=== PATIENT | male | born 1950 | race Caucasian/White ===

== ENCOUNTER 2021-01-02 09:00 | Inpatient (IN) ==
[2021-01-02] MEDS ORDERED: ONDANSETRON 4 MG/2 ML VIAL IV STA (09:27)
[2021-01-02] MEDS ORDERED: SODIUM CHLORIDE 0.9% 1,000 ML IV STA (09:27)
[2021-01-02 09:56] LABS: Basophils % 0.2 % (0.0-0.8); Eosinophils # 0.1 10*3/uL (0.0-0.87); Eosinophils % 1.1 % (0.00-10.9); Hematocrit 39.4 VOL% (42.0-52.0); Hemoglobin 13.6 GM/DL (14.0-18.0); Immature Granulocytes % 0.2 %; Immature Granulocytes Absolute 0.02 #; Lymphocytes % 10.7 % (21.2-54.2); Mean Corpuscular HGB Conc 34.5 GM/DL (32-36); Mean Corpuscular Volume 82.4 FL (87-102); Mean Platelet Volume 9.9 FL (9.6-12.0); Monocytes % 8.5 % (1.7-12.7); Neutrophils % 79.3 % (38.7-73.9); Platelet Count 157 T/CUMM (130-400); Red Blood Count 4.78 MC/CUMM (3.8-5.5); White Blood Count 9.2 T/CUMM (4-12)
[2021-01-02 10:21] LABS: Albumin 3.2 G/DL (3.4-5.0); Bilirubin,Total 1.8 MG/DL (0.2-1.0); Calcium 8.6 MG/DL (8.5-10.1); Osmolality,Calculated 255.1 MOS/KG (273-304); Potassium 3.5 MMOL/L (3.5-5.1); Total Protein 6.7 G/DL (6.4-8.2)
[2021-01-02 10:42] LABS: Bilirubin,Urine Negative (Negative); Blood, Urine Negative (Negative); Glucose,Urine (UA) Negative (Negative); Ketones,Urine Negative (Negative); Mucus,Urine Occasional /LPF (Occasional); Nitrite,Urine Negative (Negative); Protein,Urine Negative; RBC,Urine 1 /HPF (0-4); Squamous Epithelial Cell,Urine Occasional /HPF (0-10); Urine Appearance CLEAR (Clear); Urine Color Yellow (Yellow); Urine Specific Gravity 1.011 (1.001-1.035)
[2021-01-02] MEDS ORDERED: GLUCAGON 1 MG VIAL IM PRN (13:02)
[2021-01-02] MEDS ORDERED: DEXTROSE 50% 25 GM/50 ML VIAL IV PRN (13:02)
[2021-01-02] MEDS ORDERED: ALBUTEROL 2.5 MG/3 ML NEB RESP TX PRN (13:06)
[2021-01-02] MEDS ORDERED: DICLOFENAC 1% GEL 100 GM TUBE TOP PRN (13:06)
[2021-01-02 15:12] LABS: INR 1.2; PT Patient Result 12.9 SECS (9.8-11.9)
[2021-01-02] MEDS ORDERED: FUROSEMIDE 20 MG/2 ML VIAL IV ONE (15:32)
[2021-01-02] MEDS: ACETAMINOPHEN 325 MG TABLET PO PRN ×2 (16:18→20:25)
[2021-01-02] MEDS: ONDANSETRON 4 MG/2 ML VIAL IV PRN (18:29)
[2021-01-02] MEDS ORDERED: MORPHINE 4 MG/1 ML VIAL IV PRN (20:14)
[2021-01-02] MEDS: TERAZOSIN 1 MG CAPSULE PO SCH (20:24)
[2021-01-02] MEDS: FOLIC ACID 1 MG TABLET PO SCH (20:24)
[2021-01-02] MEDS: CHOLECALCIFEROL 1,000 UNIT TABLET PO SCH (20:24)
[2021-01-02] MEDS: diphenhydrAMINE CAP 25 MG CAPSULE PO SCH (20:24)
[2021-01-02] MEDS ORDERED: PROPRANOLOL 60 MG PO SCH (21:00)
[2021-01-03] MEDS: ACETAMINOPHEN 325 MG TABLET PO PRN (05:25)
[2021-01-03] MEDS: ONDANSETRON 4 MG/2 ML VIAL IV PRN (05:58)
[2021-01-03 06:20] LABS: Basophils % 0.4 % (0.0-0.8); Eosinophils # 0.4 10*3/uL (0.0-0.87); Eosinophils % 5.4 % (0.00-10.9); Hematocrit 38.5 VOL% (42.0-52.0); Immature Granulocytes % 0.8 %; Immature Granulocytes Absolute 0.06 #; Lymphocytes # 0.9 10*3/uL (1.4-4.0); Lymphocytes % 12.8 % (21.2-54.2); Mean Corpuscular HGB Conc 33.8 GM/DL (32-36); Mean Corpuscular Volume 82.8 FL (87-102); Monocytes % 9.6 % (1.7-12.7); Platelet Count 165 T/CUMM (130-400); Red Blood Count 4.65 MC/CUMM (3.8-5.5); White Blood Count 7.4 T/CUMM (4-12)
[2021-01-03 06:38] LABS: Calcium 8.5 MG/DL (8.5-10.1); Osmolality,Calculated 266.2 MOS/KG (273-304); Potassium 3.4 MMOL/L (3.5-5.1)
[2021-01-03 06:39] LABS: INR 1.1; PT Patient Result 11.7 SECS (9.8-11.9)
[2021-01-03 06:58] LABS: Cancer Antigen 19-9 53.75 U/ML (0-35); Carcinoembryonic Antigen 1.9 NG/ML (0.0-5.0)
[2021-01-03] MEDS ORDERED: DIAZEPAM 5 MG TABLET PO ONE (09:34)
[2021-01-03] MEDS ORDERED: DIPHENOXYLATE/ATROPINE 2.5-0.025 MG TABLET PO PRN (10:47)
[2021-01-03] MEDS: TERAZOSIN 1 MG CAPSULE PO SCH (20:23)
[2021-01-03] MEDS: FOLIC ACID 1 MG TABLET PO SCH (20:24)
[2021-01-03] MEDS: CHOLECALCIFEROL 1,000 UNIT TABLET PO SCH (20:24)
[2021-01-03] MEDS: diphenhydrAMINE CAP 25 MG CAPSULE PO SCH (20:24)
[2021-01-04] MEDS ORDERED: POTASSIUM CHLORIDE RIDER 10 MEQ in PREMIX 1 EACH IV PRN (07:47)
[2021-01-04] MEDS: POTASSIUM CHLORIDE 20 MEQ TABLET PO PRN ×3 (08:28→13:00)
[2021-01-04] MEDS: diphenhydrAMINE CAP 25 MG CAPSULE PO SCH (20:53)
[2021-01-04] MEDS: FOLIC ACID 1 MG TABLET PO SCH (20:55)
[2021-01-04] MEDS: CHOLECALCIFEROL 1,000 UNIT TABLET PO SCH (20:56)
[2021-01-04] MEDS: TERAZOSIN 1 MG CAPSULE PO SCH (20:57)
[2021-01-05 07:42] LABS: Basophils % 0.5 % (0.0-0.8); Eosinophils # 0.2 10*3/uL (0.0-0.87); Eosinophils % 2.9 % (0.00-10.9); Hematocrit 37.2 VOL% (42.0-52.0); Hemoglobin 12.8 GM/DL (14.0-18.0); Immature Granulocytes % 0.3 %; Immature Granulocytes Absolute 0.02 #; Lymphocytes # 0.9 10*3/uL (1.4-4.0); Lymphocytes % 13.6 % (21.2-54.2); Mean Corpuscular HGB Conc 34.4 GM/DL (32-36); Mean Corpuscular Volume 82.5 FL (87-102); Mean Platelet Volume 9.6 FL (9.6-12.0); Monocytes % 8.2 % (1.7-12.7); Neutrophils % 74.5 % (38.7-73.9); Platelet Count 163 T/CUMM (130-400); Red Blood Count 4.51 MC/CUMM (3.8-5.5); Red Cell Distribution Width 13.8 % (9.3-17.3); White Blood Count 6.5 T/CUMM (4-12)
[2021-01-05 08:05] LABS: Albumin 2.9 G/DL (3.4-5.0); Bilirubin,Total 1.2 MG/DL (0.2-1.0); Calcium 8.5 MG/DL (8.5-10.1); Osmolality,Calculated 265.4 MOS/KG (273-304); Potassium 3.6 MMOL/L (3.5-5.1); Total Protein 6.4 G/DL (6.4-8.2)
[2021-01-05] MEDS: TERAZOSIN 1 MG CAPSULE PO SCH (20:46)
[2021-01-05] MEDS: FOLIC ACID 1 MG TABLET PO SCH (20:46)
[2021-01-05] MEDS: diphenhydrAMINE CAP 25 MG CAPSULE PO SCH (20:46)
[2021-01-05] MEDS: CHOLECALCIFEROL 1,000 UNIT TABLET PO SCH (20:46)
[2021-01-06] MEDS: HYDROmorphone 2 MG/1 ML VIAL IV PRN ×2 (19:50→23:49)
[2021-01-06] MEDS: CHOLECALCIFEROL 1,000 UNIT TABLET PO SCH (20:00)
[2021-01-06] MEDS: FOLIC ACID 1 MG TABLET PO SCH (20:00)
[2021-01-06] MEDS: diphenhydrAMINE CAP 25 MG CAPSULE PO SCH (20:00)
[2021-01-06] MEDS: TERAZOSIN 1 MG CAPSULE PO SCH (20:01)
[2021-01-06] MEDS: ACETAMINOPHEN 325 MG TABLET PO PRN (22:18)
[2021-01-06] MEDS: ONDANSETRON 4 MG/2 ML VIAL IV PRN (23:35)
[2021-01-07 05:42] LABS: Basophils % 0.1 % (0.0-0.8); Eosinophils # 0.1 10*3/uL (0.0-0.87); Eosinophils % 1.9 % (0.00-10.9); Hematocrit 37.6 VOL% (42.0-52.0); Hemoglobin 13.1 GM/DL (14.0-18.0); Immature Granulocytes % 0.6 %; Immature Granulocytes Absolute 0.04 #; Lymphocytes # 0.6 10*3/uL (1.4-4.0); Lymphocytes % 8.2 % (21.2-54.2); Mean Corpuscular HGB Conc 34.8 GM/DL (32-36); Mean Corpuscular Volume 81.9 FL (87-102); Mean Platelet Volume 9.8 FL (9.6-12.0); Monocytes % 7.5 % (1.7-12.7); Neutrophils % 81.7 % (38.7-73.9); Platelet Count 158 T/CUMM (130-400); Red Blood Count 4.59 MC/CUMM (3.8-5.5); White Blood Count 6.7 T/CUMM (4-12)
[2021-01-07 05:47] LABS: Calcium 8.7 MG/DL (8.5-10.1); Osmolality,Calculated 268.2 MOS/KG (273-304); Potassium 3.9 MMOL/L (3.5-5.1)
[2021-01-07] MEDS: POTASSIUM CHLORIDE 20 MEQ TABLET PO PRN (08:50)
[2021-01-07] MEDS: HYDROmorphone 2 MG/1 ML VIAL IV PRN ×2 (12:17→20:05)
[2021-01-07] MEDS: ONDANSETRON 4 MG/2 ML VIAL IV PRN (14:58)
[2021-01-07] MEDS: TERAZOSIN 1 MG CAPSULE PO SCH (20:07)
[2021-01-07] MEDS: CHOLECALCIFEROL 1,000 UNIT TABLET PO SCH (20:07)
[2021-01-07] MEDS: diphenhydrAMINE CAP 25 MG CAPSULE PO SCH (20:07)
[2021-01-07] MEDS: FOLIC ACID 1 MG TABLET PO SCH (20:13)
[2021-01-08] MEDS: HYDROmorphone 2 MG/1 ML VIAL IV PRN (03:22)
[2021-01-08 06:54] LABS: Basophils % 0.4 % (0.0-0.8); Eosinophils # 0.1 10*3/uL (0.0-0.87); Eosinophils % 2.3 % (0.00-10.9); Hematocrit 36.2 VOL% (42.0-52.0); Hemoglobin 12.2 GM/DL (14.0-18.0); Immature Granulocytes % 0.8 %; Immature Granulocytes Absolute 0.04 #; Lymphocytes # 0.8 10*3/uL (1.4-4.0); Lymphocytes % 16.3 % (21.2-54.2); Mean Corpuscular HGB Conc 33.7 GM/DL (32-36); Mean Corpuscular Volume 83.2 FL (87-102); Mean Platelet Volume 9.8 FL (9.6-12.0); Monocytes % 11.3 % (1.7-12.7); Neutrophils % 68.9 % (38.7-73.9); Platelet Count 172 T/CUMM (130-400); Red Blood Count 4.35 MC/CUMM (3.8-5.5); Red Cell Distribution Width 14.2 % (9.3-17.3); White Blood Count 4.8 T/CUMM (4-12)
[2021-01-08 07:11] LABS: Calcium 8.5 MG/DL (8.5-10.1); Osmolality,Calculated 260.8 MOS/KG (273-304); Potassium 3.9 MMOL/L (3.5-5.1)
[2021-01-08 07:27] LABS: Eosinophils 4 % (0-10); Hypochromasia Slight; Lymphocytes 22 % (20-55); Platelet Estimate Adequate; Segmented Neutrophils 66 % (50-85); Total Cells Counted 100
[2021-01-08 07:28] LABS: Microcytosis Slight
[2021-01-08] MEDS: GABAPENTIN 100 MG CAPSULE PO SCH ×3 (09:44→22:06)
[2021-01-08] MEDS: TERAZOSIN 1 MG CAPSULE PO SCH (22:05)
[2021-01-08] MEDS: diphenhydrAMINE CAP 25 MG CAPSULE PO SCH (22:05)
[2021-01-08] MEDS: FOLIC ACID 1 MG TABLET PO SCH (22:05)
[2021-01-08] MEDS: CHOLECALCIFEROL 1,000 UNIT TABLET PO SCH (22:06)
[2021-01-09] MEDS: GABAPENTIN 100 MG CAPSULE PO SCH ×3 (08:50→21:14)
[2021-01-09] MEDS: TERAZOSIN 1 MG CAPSULE PO SCH (21:13)
[2021-01-09] MEDS: CHOLECALCIFEROL 1,000 UNIT TABLET PO SCH (21:13)
[2021-01-09] MEDS: diphenhydrAMINE CAP 25 MG CAPSULE PO SCH (21:17)
[2021-01-09] MEDS: FOLIC ACID 1 MG TABLET PO SCH (21:17)
[2021-01-10] MEDS: GABAPENTIN 100 MG CAPSULE PO SCH (09:35)
[2021-01-10 13:12] VITALS: BP 114/63
== END 2021-01-10 13:13 | disposition hospice, home (50) | DRG 436 ==
LOC: EDBD → EDUNIT# → N.ED 09:00 → SUATTDRO 11:48 → N.EDINP 11:48 → N.4E 14:05
PROVIDERS: ADMIT Internal Medicine; ATTEND Emergency Medicine